=== PATIENT | male | born 1980 | race Caucasian/White ===

== ENCOUNTER 2016-12-16 10:12 | Emergency (ER) | payer BC ==
--- NOTE | 2016-12-16 10:29 | Emergency Department Record ---
History of Present Illness - General Chief complaint: Hypogylcemia Stated complaint: LOW BLOOD SUGAR Time Seen by Provider: 12/16/16 10:18 Source: Patient Mode of Arrival: EMS Limitations: No limitations - History of Present Illness Initial comments: 36 yo male presents to ED with for evaluation following an episode of hypoglycemia while at work this morning. Patient reports taking his usual dose of Insulin and ate his normal breakfast, reports his symptoms of light- headedness came on suddenly. Patient reports eating (2) candy bars and a Mountain-Dew prior to arrival. Initial accu check was 40, repeat was 117. Patient denies syncope or loss of consciousness, denies injury, and reports that he is feeling at his baseline currently. MD Complaint: Generalized weakness Onset/Timin -: Hour(s) Location: Generalized Severity: Moderate Consistency: Intermittent Improves with: None Worsens with: None Associated Symptoms: Denies other symptoms - [place] Coma Scale Eye Response: (4) Open spontaneously Motor Response: (6) Obeys commands Verbal Response: (5) Oriented [place] Total: 15 - Related Data Home Medications Medication Instructions Recorded Confirmed Last Taken Insulin Glargine,Hum.rec.anlog 40 units SC QAM 03/29/14 12/16/16 04/10/15 [Lantus] Insulin Aspart [Novolog Flexpen] 100 unit SQ ASDIR 12/16/16 12/16/16 Unknown Allergies Allergy/AdvReac Type Severity Reaction Status Date / Time No Known Drug Allergies Allergy Verified 03/29/14 15:21 Travel Screening - Travel/Exposure Within Last 30 Days Have you traveled within the last 30 days?: No Review of Systems Constitutional: Denies: Chills, Fever, Malaise, Night sweats Eyes: Denies: Eye discharge, Eye pain ENT: Denies: Congestion, Ear pain, Epistaxis Respiratory: Denies: Cough, Dyspnea Cardiovascular: Denies: Chest pain, Dyspnea on exertion Endocrine: Denies: Fatigue, Heat or cold intolerance Gastrointestinal: Denies: Abdominal pain, Nausea, Vomiting Genitourinary: Denies: Incontinence, Retention Musculoskeletal: Denies: Arthralgia, Back pain, Gout, Joint swelling Skin: Denies: Bruising, Change in color Neurological: Denies: Abnormal gait, Confusion, Headache, Seizure Psychiatric: Denies: Anxiety Hematological/Lymphatic: Denies: Anemia, Blood Clots Past Medical History - SOCIAL HISTORY Smoking Status: Current every day smoker Alcohol Use: None Drug Use: None - RESPIRATORY Hx Respiratory Disorders: No - CARDIOVASCULAR Hx Cardio Disorders: No - NEURO Hx Neuro Disorders: No - GI Hx GI Disorders: No - Hx Genitourinary Disorders: No - ENDOCRINE Hx Endocrine Disorders: Yes Hx Diabetes: Yes (type 1) - MUSCULOSKELETAL Hx Musculoskeletal Disorders: No - PSYCH Hx Psych Problems: No - HEMATOLOGY/ONCOLOGY Hx Hematology/Oncology Disorders: No Family Medical History Any Significant Family History?: Yes Hx Diabetes: Mother Hx Heart Disease: Mother Physical Exam - General General Appearance: Alert, Oriented x3, Cooperative, No acute distress Limitations: No limitations - Head Head exam: Atraumatic, Normocephalic, Normal inspection Head exam detail: negative: Abrasion, Contusion, Liang's sign, General tenderness, Hematoma, Laceration - Eye Eye exam: Normal appearance. negative: Conjunctival injection, Periorbital swelling, Periorbital tenderness, Scleral icterus - ENT Ear exam: negative: Auricular hematoma, Auricular trauma Nasal Exam: negative: Active bleeding, Discharge, Dried blood, Foreign body Mouth exam: negative: Drooling, Laceration, Muffled voice, Tongue elevation - Neck Neck exam: Normal inspection. negative: Meningismus, Tenderness - Respiratory Respiratory exam: Normal lung sounds bilaterally. negative: Rales, Respiratory distress, Rhonchi, Stridor - Cardiovascular Cardiovascular Exam: Regular rate, Normal rhythm, Normal heart sounds - GI/Abdominal GI/Abdominal exam: Soft. negative: Rebound, Rigid, Tenderness - Rectal Rectal exam: Deferred - exam: Deferred - Extremities Extremities exam: Normal inspection. negative: Calf tenderness, Pedal edema, Tenderness - Back Back exam: Denies: CVA tenderness (R), CVA tenderness (L) - Neurological Neurological exam: Alert, Normal gait, Oriented X3 - Psychiatric Psychiatric exam: Normal affect, Normal mood - Skin Skin exam: Normal color. negative: Abrasion Type of lesion: negative: abrasion Course Vital Signs 12/16/16 10:17 Temperature 97.7 F Pulse Rate 93 H Respiratory 18 Rate Blood Pressure 152/100 Pulse Ox 98 - Reevaluation(s) Reevaluation #1: 12/16/16 11:30 Repeat accu check following patient eating lunch tray is 303, patient reports improvement in his symptoms and appears stable for discharge at this time. Disposition Disposition: Discharge Clinical Impression: Insulin reaction Qualifiers: Encounter type: initial encounter Qualified Code(s): T38.3X5A - Adverse effect of insulin and oral hypoglycemic [antidiabetic] drugs, initial encounter Disposition: Home, Self-Care Condition: (2) Stable Instructions: Hypoglycemia in a Person with Diabetes (ED) Additional Instructions: Return to ED if your symptoms worsen or if you have any concerns. Follow-up with your family doctor in 3-5 days as directed. Forms: Patient Portal Access Time of Disposition: 11:31
== END 2016-12-16 11:39 | disposition home or self-care (01) ==
LOC: ER 10:12
DX: E11.649 Type 2 diabetes mellitus with hypoglycemia without coma (principal); Z79.4 Long term (current) use of insulin
CPT/HCPCS: 36416; 82948; 99282

== ENCOUNTER 2017-06-25 10:32 | Emergency (ER) | payer BC ==
[2017-06-25] MEDS ORDERED: 0.9 % SODIUM CHLORIDE 1,000 ML BAG IV ONE ×2 (10:44→11:38)
[2017-06-25] MEDS ORDERED: DEXTROSE 50 % IVP 50 ML DISP.SYRIN IVP ONE (10:45)
--- NOTE | 2017-06-25 10:59 | Emergency Department Record ---
History of Present Illness - General Chief complaint: Hypogylcemia Stated complaint: LOW BLODD GLUCOSE Time Seen by Provider: 06/25/17 10:40 Source: Patient Mode of Arrival: EMS Limitations: No limitations - History of Present Illness Initial comments: The patient was at work this AM and began to feel weak and felt his BS was low. He did take some glucose but since it did not resolve EMS was called. His BS was found to be 34 by EMS and was given more glucose. Now the patient is feeling better and his last accucheck was 71. He denies any recent illnesses or injuries and states he took his Insulin this AM but did not eat breakfast. MD Complaint: Generalized weakness Onset/Timin -: Minutes(s) Improves with: None Worsens with: None Associated Symptoms: Denies other symptoms - [place] Coma Scale Eye Response: (4) Open spontaneously Motor Response: (6) Obeys commands Verbal Response: (5) Oriented [place] Total: 15 - Related Data Home Medications Medication Instructions Recorded Confirmed Last Taken Buspirone HCl [Buspar] 7.5 mg PO BID 06/25/17 06/25/17 06/25/17 Sulfamethoxazole/Trimethoprim 1 each PO BID 06/25/17 06/25/17 06/25/17 [Bactrim Ds Tablet] Allergies Allergy/AdvReac Type Severity Reaction Status Date / Time No Known Drug Allergies Allergy Verified 03/29/14 15:21 Travel Screening - Travel/Exposure Within Last 30 Days Have you traveled within the last 30 days?: No - Travel/Exposure Within Last Year Have you traveled outside the [place] in the last year?: No - Additonal Travel Details Have you been exposed to anyone with a communicable illness?: No - Travel Symptoms Symptom Screening: None Review of Systems Constitutional: Denies: Chills, Fever Eyes: Denies: Eye discharge ENT: Denies: Congestion Respiratory: Denies: Cough, Dyspnea Past Medical History - SOCIAL HISTORY Smoking Status: Current every day smoker Alcohol Use: Heavy Drug Use: None - RESPIRATORY Hx Respiratory Disorders: No - CARDIOVASCULAR Hx Cardio Disorders: No - NEURO Hx Neuro Disorders: No - GI Hx GI Disorders: No - Hx Genitourinary Disorders: No - ENDOCRINE Hx Endocrine Disorders: Yes Hx Diabetes: Yes (type 1) - MUSCULOSKELETAL Hx Musculoskeletal Disorders: No - PSYCH Hx Psych Problems: No - HEMATOLOGY/ONCOLOGY Hx Hematology/Oncology Disorders: No Family Medical History Any Significant Family History?: No Hx Diabetes: Mother Hx Heart Disease: Mother Physical Exam - General General Appearance: Alert, Oriented x3, Cooperative, No acute distress - Head Head exam: Atraumatic, Normocephalic, Normal inspection - Eye Eye exam: Normal appearance, PERRL, EOMI - ENT Throat exam: Normal inspection. negative: Tonsillar erythema, Tonsillar exudate - Neck Neck exam: Normal inspection, Full ROM. negative: Tenderness - Respiratory Respiratory exam: Normal lung sounds bilaterally. negative: Respiratory distress - Cardiovascular Cardiovascular Exam: Regular rate, Normal rhythm, Normal heart sounds - GI/Abdominal GI/Abdominal exam: Soft, Normal bowel sounds. negative: Tenderness - Extremities Extremities exam: Normal inspection, Full ROM, Normal capillary refill. negative: Tenderness - Neurological Neurological exam: Alert, Normal gait, Oriented X3. negative: Abnormal gait, Motor sensory deficit - Psychiatric Psychiatric exam: negative: Anxious, Depressed Course Vital Signs 06/25/17 10:33 Temperature 97.5 F L Pulse Rate 94 H Respiratory 16 Rate Blood Pressure 142/94 Pulse Ox 99 - Reevaluation(s) Reevaluation #1: The patient does feel well at this time but his BS now is over 400. The patient states his sugar is very labile and that is not unusual for him. He states he normally would take 6 units of his Novolog SC so I instructed him to take that and we will recheck his sugar soon. 06/25/17 12:46 Reevaluation #2: The patient is doing very well at this time. His blood sugar is very labile and is now on its way down slowly. The patient does not exhibit any nausea, weakness , CP, or vomiting and states this does occur quite regularly for him. I offered to keep the patient in the ER longer to combat the elevated BS but he would like to go home. He is to continue his normal Insulin regimine and return to the ER for any worsening of his blood sugar. 06/25/17 13:49 Medical Decision Making - Data Complexity MDM Data: Labs Ordered and/or Reviewed - Lab Data Result diagrams: 06/25/17 10:23 06/25/17 10:23 Disposition Disposition: Discharge Clinical Impression: Hypoglycemia Disposition: Home, Self-Care Condition: (2) Stable Instructions: Hypoglycemia in a Person with Diabetes (ED) Additional Instructions: Please continue your sliding scale of Insulin and be very careful to eat in the morning. Please see your PCP next week for recheck if needed. Return to the ER for any further elevation of your blood sugar or if it does not go below 400 in 6 hours. Forms: Patient Portal Access Time of Disposition: 13:52 Quality - Quality Measures Quality Measures: N/A - Blood Pressure Screening View Details: Yes Does Patient Have Any of the Following: No Blood Pressure Classification: Pre-Hypertensive BP Reading Systolic Measurement: 131 Diastolic Measurement: 89 Screening for High Blood Pressure: < Pre-Hypertensive BP, F/U Documented > [ G8950] Pre-Hypertensive Follow-up Interventions: Referral to alternative/primary care provider.
[2017-06-25 11:05] LABS: BASO % 0.9 % (0-6); EOS % 9.1 % (0-6); GRAN % 38.3 % (47-80); HEMATOCRIT 47.1 % (42.0-52.0); HEMOGLOBIN 16.4 gm/dl (14.0-18.0); MEAN CELL VOLUME 96.3 fl (81-97); MEAN CORPUSCULAR HEMOGLOBIN 33.5 pg (27-33); MEAN CORPUSCULAR HGB CONC 34.8 g/dl (32-36); MEAN PLATELET VOLUME 10.4 fl (7.4-10.4); MONO % 8.7 % (0-9); PLATELET COUNT 353 K/uL (130-400); RED BLOOD COUNT 4.89 M/uL (4.40-5.70); WHITE BLOOD COUNT W/O DIFF 8.8 K/uL (4.2-12.2)
[2017-06-25 11:18] LABS: BLOOD UREA NITROGEN 7 mg/dL (6-20); CREATININE 0.8 mg/dL (0.7-1.2); EST GLOMERULAR FILTRATION RATE > 60 mL/min
[2017-06-25 11:29] LABS: GLUCOSE,RANDOM 43 mg/dL (74-109)
[2017-06-25] MEDS ORDERED: HUMULIN R 100 UNIT/ML VIAL IV ONE (12:44)
== END 2017-06-25 13:58 | disposition home or self-care (01) ==
LOC: ER 10:32
DX: E10.649 Type 1 diabetes mellitus with hypoglycemia without coma (principal); R53.1 Weakness; Z79.4 Long term (current) use of insulin
CPT/HCPCS: 36416; 80048; 82948; 85025; 96361; 96374; 99284; J7030

== ENCOUNTER 2018-10-18 10:03 | Emergency (ER) | payer BC ==
--- NOTE | 2018-10-18 10:52 | Emergency Department Record ---
History of Present Illness - General Chief complaint: Extremity Problem Stated complaint: BRUISE LEFT ARM Time Seen by Provider: 10/18/18 10:31 Source: Patient Mode of Arrival: Ambulatory Limitations: No limitations - History of Present Illness Initial comments: The patient is here due to L arm bruising for the last few hours. The patient states he did injury his L elbow about a week to 10 days ago. He then stated he woke up this AM with a gold ball sized bruise to the proximal medial L forearm just distal to the elbow. Over the last few hours the bruising has spread proximal and distal to the L elbow. He denies any pain, fever, new trauma, numbness, or weakness to the L arm. 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 MD Complaint: Other Onset/Timin -: Minutes(s) Location: Left, Arm Radiation: None - Related Data Home Medications Medication Instructions Recorded Confirmed Last Taken Losartan Potassium [Cozaar] 50 mg PO DAILY 10/18/18 10/18/18 10/18/18 Previous Rx's Medication Instructions Recorded Cephalexin [Keflex] 500 mg PO QID #28 cap 10/18/18 Allergies Allergy/AdvReac Type Severity Reaction Status Date / Time No Known Drug Allergies Allergy Verified 03/29/14 15:21 Travel Screening - Travel/Exposure Within Last 30 Days Have you traveled within the last 30 days?: No - Travel/Exposure Within Last Year Have you traveled outside the [place] in the last year?: No - Additonal Travel Details Have you been exposed to anyone with a communicable illness?: No - Travel Symptoms Symptom Screening: None Review of Systems Constitutional: Denies: Chills, Fever Eyes: Denies: Eye discharge ENT: Denies: Congestion Respiratory: Denies: Cough Cardiovascular: Denies: Arrhythmia Endocrine: Denies: Fatigue Gastrointestinal: Denies: Abdominal pain, Nausea Genitourinary: Denies: Dysuria Musculoskeletal: Denies: Arthralgia Skin: Reports: Bruising Past Medical History - SOCIAL HISTORY Smoking Status: Current every day smoker Alcohol Use: Heavy Alcohol Use Comment: 6 pack daily - RESPIRATORY Hx Respiratory Disorders: No - CARDIOVASCULAR Hx Cardio Disorders: Yes Hx Hypertension: Yes - NEURO Hx Neuro Disorders: No - GI Hx GI Disorders: No - Hx Genitourinary Disorders: No - ENDOCRINE Hx Endocrine Disorders: Yes Hx Diabetes: Yes (type 1) - MUSCULOSKELETAL Hx Musculoskeletal Disorders: No - PSYCH Hx Psych Problems: No - HEMATOLOGY/ONCOLOGY Hx Hematology/Oncology Disorders: No Family Medical History Any Significant Family History?: No Hx Diabetes: Mother Hx Heart Disease: Mother Physical Exam - General General Appearance: Alert, Oriented x3, Cooperative, No acute distress - Head Head exam: Atraumatic, Normocephalic - Eye Eye exam: Normal appearance, PERRL - Neck Neck exam: Normal inspection, Full ROM. negative: Tenderness - Respiratory Respiratory exam: Normal lung sounds bilaterally. negative: Respiratory distress - Cardiovascular Cardiovascular Exam: Regular rate, Normal rhythm, Normal heart sounds - GI/Abdominal GI/Abdominal exam: Soft, Normal bowel sounds. negative: Tenderness - Extremities Extremities exam: Full ROM (There is full flexion and extension of the L elbow with no pain or discomfort.), Normal capillary refill. negative: Normal inspection (There is bruising to the medial L arm from the proximal distal arm to the mid forearm medially. There is no warmth, tenderness, or crepitance. There is very slight trace erythema to the distal bruised area.), Calf tenderness, Joint swelling, Pedal edema, Tenderness Image of Full Body: 1 - Area of bruising. Course Vital Signs 10/18/18 10:10 Temperature 97.8 F Pulse Rate 98 H Respiratory 16 Rate Blood Pressure 164/100 Pulse Ox 99 - Reevaluation(s) Reevaluation #1: The patient is doing very well at this time. I did discuss the need to keep the arm in a sling for a week and to ice and elevate the arm. There does not appear to be any significant infection but due to the confusing nature of the patient' s issues we will place him on Keflex. It is possible the patient has a subtle fx from his fall a week ago but since he has no pain we will place him in a sling. He is to see his PCP later this week for further evaluation. 10/18/18 11:42 Medical Decision Making - Data Complexity MDM Data: Labs Ordered and/or Reviewed, X-Ray Ordered and/or Reviewed - Lab Data Result diagrams: 10/18/18 10:34 10/18/18 10:54 - Radiology Data Radiology results: Report reviewed (L elbow: subtle possible fx line on only 1 of 4 elbow views. ) Disposition Disposition: Discharge Clinical Impression: Superficial bruising of arm Qualifiers: Encounter type: initial encounter Laterality: left Qualified Code(s): S40.022A - Contusion of left upper arm, initial encounter Disposition: Home, Self-Care Condition: (2) Stable Instructions: Contusion in Adults (ED) Additional Instructions: Please ice and elevate the arm for 3 days and do not use at work. Please take the Keflex as directed and please see your family doctor in 2-3 days for recheck. Return to the ER for any worsening of the bruising, or any fever, pain , or redness. Prescriptions: Cephalexin [Keflex] 500 mg PO QID #28 cap Forms: Patient Portal Access Time of Disposition: 11:45 Quality - Quality Measures Quality Measures: N/A - Blood Pressure Screening View Details: Yes Does Patient Have Any of the Following: No Blood Pressure Classification: Hypertensive Reading Systolic Measurement: 169 Diastolic Measurement: 104 Screening for High Blood Pressure: < First Hypertensive BP, F/U Documented > [ G8950] First Hypertensive Follow-up Interventions: Referral to alternative/primary care provider.
[2018-10-18 11:01] LABS: BASO % 1.1 % (0-6); EOS % 9.1 % (0-6); HEMATOCRIT 44.4 % (42.0-52.0); HEMOGLOBIN 15.3 gm/dl (14.0-18.0); LYMPH % 24.5 % (16-45); MEAN CELL VOLUME 94.3 fl (81-97); MEAN CORPUSCULAR HEMOGLOBIN 32.5 pg (27-33); MEAN CORPUSCULAR HGB CONC 34.5 g/dl (32-36); MEAN PLATELET VOLUME 9.5 fl (7.4-10.4); MONO % 9.3 % (0-9); PLATELET COUNT 324 K/uL (130-400); RED BLOOD COUNT 4.71 M/uL (4.40-5.70); RED CELL DISTRIBUTION WIDTH 13.1 % (11.5-14.5)
[2018-10-18 11:09] LABS: BLOOD UREA NITROGEN 16 mg/dL (6-20)
[2018-10-18 11:10] LABS: CREATININE 0.7 mg/dL (0.7-1.2); EST GLOMERULAR FILTRATION RATE > 60 mL/min
[2018-10-18 11:12] LABS: GLUCOSE,RANDOM 173 mg/dL (74-109)
[2018-10-18 11:14] LABS: PARTIAL THROMBOPLASTIN TIME 34.3 SECONDS (24.5-39.1); PROTHROMBIN TIME (PATIENT) 9.6 SECONDS (9.5-12.1)
[2018-10-18 11:15] LABS: C-REACTIVE PROTEIN 0.06 mg/dL (<0.5)
[2018-10-18] MEDS ORDERED: CEPHALEXIN 500 MG CAPSULE PO STA (11:36)
--- NOTE | 2018-10-19 19:37 | RADIOLOGY REPORT ---
EXAM: ELBOW, LEFT 3 VIEWS HISTORY: FALL ONE WEEK AGO WITH POSTERIOR ELBOW PAIN. TECHNIQUE: Four views of the left elbow. FINDINGS: No definable elbow joint effusion. Mild soft tissue swelling along the posterior olecranon process with focal soft tissue irregularity. No radiopaque foreign bodies. No definite fracture is seen. Minimal linear lucency near the medial cortex of the olecranon on the notch view. No dislocation. IMPRESSION: 1. POSTERIOR ELBOW SOFT TISSUE SWELLING WITH ASSOCIATED FOCAL SOFT TISSUE INJURY. 2. EQUIVOCAL SMALL LINEAR LUCENCY INVOLVING THE MEDIAL CORTEX OF THE OLECRANON ON A SINGLE VIEW; THIS COULD REPRESENT PROJECTIONAL ARTIFACT, HOWEVER, FOLLOW- UP SHORT INTERVAL RADIOGRAPHS OR CROSS-SECTIONAL IMAGING COULD BE OBTAINED IF THERE IS CONTINUED CONCERN FOR A FRACTURE. 3. OTHERWISE, NO ACUTE OSSEOUS FINDINGS. JOB [facility]BER: [id number] [facility]
== END 2018-10-18 11:52 | disposition home or self-care (01) ==
LOC: ER 10:03
DX: S50.12XA Contusion of left forearm, initial encounter (principal); M25.522 Pain in left elbow; I10 Essential (primary) hypertension; F17.210 Nicotine dependence, cigarettes, uncomplicated; W19.XXXA Unspecified fall, initial encounter
CPT/HCPCS: 80048; 85025; 85610; 85730; 86140; 99283; 99284

== ENCOUNTER 2018-10-19 12:10 | Emergency (ER) | payer BC ==
--- NOTE | 2018-10-19 12:18 | Emergency Department Record ---
History of Present Illness - General Chief Complaint: Wound, check Stated Complaint: RECHECK Time Seen by Provider: 10/19/18 12:17 Source: Patient Mode of arrival: Ambulatory Limitations: No limitations - History of Present Illness Initial Comments: The patient is here for recheck of his L arm bruising. He was seen yesterday for it and possibly had a week old subtle fx of the elbow. He has been using it at work and then it began bruising yesterday. Today the bruising is improving and he denies any worsening pain, or any fever or numbness. Complaint: Wound re-check Onset/Timin -: Days(s) Initial Visit For: Other Returns Today for: Wound recheck Symptoms Since Prior Visit: No new symptoms, Improved Associated Symptoms: None - Related Data Previous Rx's Medication Instructions Recorded Cephalexin [Keflex] 500 mg PO QID #28 cap 10/18/18 Allergies Allergy/AdvReac Type Severity Reaction Status Date / Time No Known Drug Allergies Allergy Verified 03/29/14 15:21 Travel Screening - Travel/Exposure Within Last 30 Days Have you traveled within the last 30 days?: No Review of Systems Constitutional: Denies: Chills, Fever Eyes: Denies: Eye discharge ENT: Denies: Congestion Respiratory: Denies: Cough, Dyspnea Past Medical History - SOCIAL HISTORY Smoking Status: Current every day smoker - RESPIRATORY Hx Respiratory Disorders: No - CARDIOVASCULAR Hx Cardio Disorders: Yes Hx Hypertension: Yes - NEURO Hx Neuro Disorders: No - GI Hx GI Disorders: No - Hx Genitourinary Disorders: No - ENDOCRINE Hx Endocrine Disorders: Yes Hx Diabetes: Yes (type 1) - MUSCULOSKELETAL Hx Musculoskeletal Disorders: No - PSYCH Hx Psych Problems: No - HEMATOLOGY/ONCOLOGY Hx Hematology/Oncology Disorders: No Family Medical History Any Significant Family History?: Yes Hx Diabetes: Mother Hx Heart Disease: Mother Physical Exam - General General Appearance: Alert, Cooperative, No acute distress - Head Head exam: Atraumatic, Normocephalic - Eye Eye exam: Normal appearance, PERRL - Extremities Extremities exam: Tenderness (very minimally over the olecranon. ), Other (The L arm is NVI with normal pulses.). negative: Normal inspection (The medial L arm bruising is improving from yesterday. There is no warmth, tenderness or erythema. ), Full ROM Course Vital Signs 10/19/18 12:15 Temperature 97.7 F Pulse Rate 88 Respiratory 18 Rate Blood Pressure 128/84 Pulse Ox 100 - Reevaluation(s) Reevaluation #1: I explained to the patient that he is to keep the arm in a sling and see his PCP next week as planned. He is to return to the ER for any worsening symptoms. 10/19/18 12:29 Disposition Disposition: Discharge Clinical Impression: Superficial bruising of arm Qualifiers: Encounter type: initial encounter Laterality: left Qualified Code(s): S40.022A - Contusion of left upper arm, initial encounter Disposition: Home, Self-Care Condition: (2) Stable Instructions: Contusion in Adults (ED) Additional Instructions: Please continue the Keflex and wear the arm sling for 6 more days. Please see your doctor next week as directed and bring the official xray report to the visit. Please obtain the xray report from the xray dept prior to going to the appointment. Return to the ER for any worsening symptoms. Forms: Patient Portal Access Time of Disposition: 12:19 Quality - Quality Measures Quality Measures: N/A - Blood Pressure Screening View Details: Yes Does Patient Have Any of the Following: No Blood Pressure Classification: Pre-Hypertensive BP Reading Systolic Measurement: 128 Diastolic Measurement: 84 Screening for High Blood Pressure: < Pre-Hypertensive BP, F/U Documented > [ G8950] Pre-Hypertensive Follow-up Interventions: Referral to alternative/primary care provider.
== END 2018-10-19 12:31 | disposition home or self-care (01) ==
LOC: ER 12:10
DX: S40.022A Contusion of left upper arm, initial encounter (principal); X58.XXXA Exposure to other specified factors, initial encounter; I10 Essential (primary) hypertension; F17.210 Nicotine dependence, cigarettes, uncomplicated; E11.9 Type 2 diabetes mellitus without complications; Z79.4 Long term (current) use of insulin
CPT/HCPCS: 99281